=== PATIENT | female | born 1995 | race Caucasian/White ===

== ENCOUNTER 2020-08-30 20:57 | Emergency (ER) | payer MEDICAID, OTHER ==
[~2020-08-30] VITALS: Ht 170.1 cm; Wt 81.6 kg
[2020-08-30] MEDS ORDERED: morphine INJ 10 MG/ML 1ML (SYR OR VIAL) IVP STA ×2 (21:20→22:16)
[2020-08-30 21:24] LABS: BASOPHILS % (AUTO) 0 % (0-10); EOSINOPHILS # (AUTO) 0.2 10^3/uL (0.0-0.3); EOSINOPHILS % (AUTO) 1 % (0-10); HEMATOCRIT 43 % (35-52); LYMPHOCYTES # (AUTO) 3.1 X 10^3 (1.0-4.0); LYMPHOCYTES % (AUTO) 21 % (12-44); MEAN CORPUSCULAR HEMOGLOBIN 30 PG (25-34); MEAN CORPUSCULAR HGB CONC 33 G/DL (32-36); MEAN CORPUSCULAR VOLUME 93 FL (80-99); MEAN PLATELET VOLUME 10.9 FL (7.4-10.4); MONOCYTES # (AUTO) 0.4 X 10^3 (0.0-1.0); MONOCYTES % (AUTO) 3 % (0-12); NEUTROPHILS # (AUTO) 11.2 X 10^3 (1.8-7.8); NEUTROPHILS % (AUTO) 75 % (42-75); PLATELET COUNT 241 10^3/uL (130-400); WHITE BLOOD COUNT 15.1 10^3/uL (4.3-11.0)
[2020-08-30 21:25] LABS: COLOR,URINE YELLOW
[2020-08-30 21:26] LABS: BILIRUBIN,URINE NEH (NEGATIVE); CLARITY,URINE SLIGHTLY CLOUDY; GLUCOSE, URINE (UA) NEGATIVE (NEGATIVE); KETONES,URINE NEGATIVE (NEGATIVE); LEUKOCYTE ESTERASE ,URINE TRACE (NEGATIVE); NITRITE,URINE NEGATIVE (NEGATIVE); PROTEIN,URINE NEGATIVE (NEGATIVE)
[2020-08-30] MEDS ORDERED: ONDANSETRON 4 MG/2 ML (SDV) Z0FRAN IVP ONE (21:30)
[2020-08-30 21:39] LABS: ALANINE AMINOTRANSFERASE 21 U/L (0-55); ALBUMIN 4.2 GM/DL (3.2-4.5); ALKALINE PHOSPHATASE 101 U/L (40-136); BILIRUBIN,TOTAL < 0.2 MG/DL (0.1-1.0); BUN/CREATININE RATIO 11; CALCIUM 8.7 MG/DL (8.5-10.1); CARBON DIOXIDE 21 MMOL/L (21-32); CHLORIDE 107 MMOL/L (98-107); GFR ESTIMATED > 60; GLUCOSE 138 MG/DL (70-105); SODIUM 139 MMOL/L (135-145); TOTAL PROTEIN 7.1 GM/DL (6.4-8.2)
[2020-08-30] MEDS ORDERED: IOHEXOL 350 MG/ML 100 ML (OMNIPAQUE 350) VIAL IV ONE (21:45)
[2020-08-30] MEDS ORDERED: HOLD METFORMIN - RECEIVED CONTRAST 20 ML VIAL IV SCH (21:45)
[2020-08-30] MEDS ORDERED: CATHETER FLUSH 10 ML SYR IV PRN (21:45)
[2020-08-30] MEDS ORDERED: NS 100 ML (IVPB) BAG IV ONE (21:45)
[2020-08-30 21:46] LABS: EOSINOPHILS % (MANUAL) 1 %; LYMPHOCYTES % (MANUAL) 26 %; MONOCYTES % (MANUAL) 4 %; NEUTROPHILS % (MANUAL) 69 %; TOXIC GRANULATION/VACUOLAZATIO 4+
[2020-08-30] MEDS ORDERED: PIPERACILLIN SODIUM/TAZOBACTAM 4.5 GM in NS (IVPB) 100 ML IV ONE (22:45)
[2020-08-30] MEDS ORDERED: fentaNYL INJECTION 100 MCG/2 ML AMP IVP PRN (23:30)
[2020-08-30] MEDS ORDERED: LORazepam INJ 2 MG/ML (ATIVAN) VIAL IVP ONE (23:30)
--- NOTE | 2020-08-31 00:13 | ED General ---
General Chief Complaint: Abdominal/GI Problems Stated Complaint: RIGHT SIDE PAIN Nursing Triage Note: Patient states that she began having lower right quadrant abdominal pain last night. Patient states that it has progressively gotten worse. Patient rates her pain at a 10. Nursing Sepsis Screen: No Definite Risk Source of Information: Patient History of Present Illness Date Seen by Provider: Aug 31, 2020 Time Seen by Provider: 22:30 Initial Comments Patient is a 25-year-old female who presents with right lower quadrant pain starting approximately 24 hours prior to ED arrival. Pain is dull headache and has gradually increased in intensity over the past several hours. Pain is worse with palpation and movement. Patient reports nausea loss of appetite. No fever chills or sweats. No flank pain. No urinary frequency urgency or burning. No vaginal discharge or bleeding. No constipation or diarrhea. No prior abdominal surgery. Patient does not have menstrual periods due to Depo-Provera injection. Timing/Duration: 24 Hours Modifying Factors: improves with Movement, improves with Rest Associated Systoms: Loss of Appetite, Nausea/Vomiting Allergies and Home Medications Allergies Coded Allergies: No Known Drug Allergies (Unverified , 08/30/20) Patient Home Medication List Home Medication List Reviewed: Yes Review of Systems Review of Systems Constitutional: see HPI EENTM: see HPI Respiratory: see HPI Cardiovascular: see HPI Gastrointestinal: RLQ, abdominal pain, loss of appetite, nausea Genitourinary: no symptoms reported, see HPI Musculoskeletal: no symptoms reported Skin: no symptoms reported Psychiatric/Neurological: No Symptoms Reported Hematologic/Lymphatic: No Symptoms Reported Immunological/Allergic: no symptoms reported Past Irgrtud-Xlspsu-Szplde Hx Patient Social History Alcohol Use: Denies Use Recreational Drug Use: No Smoking Status: Current Everyday Smoker Recent Foreign Travel: No Contact w/Someone Who Travel: No Recent Infectious Disease Expo: No Physical Abuse: No Sexual Abuse: No Mistreated: No Fear: No Past Medical History Surgeries: No Respiratory: No Cardiac: No Neurological: No Genitourinary: No Gastrointestinal: No Musculoskeletal: No Endocrine: No HEENT: No Cancer: No Psychosocial: No Integumentary: No Blood Disorders: No Physical Exam Vital Signs Vital Signs - First Documented 08/30/20 21:02 Temp 36.6 Pulse 125 Resp 20 B/P (MAP) 133/81 (98) Pulse Ox 97 O2 Delivery Room Air Capillary Refill : Less Than 3 Seconds Height, Weight, BMI Height: '" Weight: lbs. oz. kg; 28.00 BMI Method: General Appearance: Moderate Distress Eyes: Bilateral Eye Normal Inspection, Bilateral Eye PERRL, Bilateral Eye EOMI HEENT: PERRL/EOMI, Normal ENT Inspection, Pharynx Normal Neck: Full Range of Motion, Non Tender Respiratory: Lungs Clear Cardiovascular: Regular Rate, Rhythm, No Edema Gastrointestinal: Tenderness (RLQ tenderness w/voluntary guarding) Back: Normal Inspection, No CVA Tenderness Extremity: Normal Capillary Refill Focused Exam Sepsis Stage: Ruled Out Respiratory: Lungs Clear Progress/Results/Core Measures Suspected Sepsis Recent Fever Within 48 Hours: No Infection Criteria Present: None New/Unexplained Altered Menta: No Sepsis Screen: No Definite Risk SIRS Temperature: Pulse: 125 Respiratory Rate: 20 Laboratory Tests 08/30/20 21:10: White Blood Count 15.1H Blood Pressure 133 /81 Mean: 98 Laboratory Tests 08/30/20 21:10: Creatinine 0.90, Platelet Count 241, Total Bilirubin < 0.2 Results/Orders Lab Results Laboratory Tests Test 08/30/20 21:06 08/30/20 21:10 Range/Units Urine Color YELLOW Urine Clarity SLIGHTLY CLOUDY Urine pH 6.0 5-9 Urine Specific [place] >=1.030 1.016-1.022 Urine Protein NEGATIVE NEGATIVE Urine Glucose (UA) NEGATIVE NEGATIVE Urine Ketones NEGATIVE NEGATIVE Urine Nitrite NEGATIVE NEGATIVE Urine Bilirubin NEH NEGATIVE Urine Urobilinogen 0.2 < = 1.0 MG/DL Urine Leukocyte Esterase TRACE H NEGATIVE Urine RBC (Auto) 2+ H NEGATIVE White Blood Count 15.1 H 4.3-11.0 10^3/uL Red Blood Count 4.61 4.35-5.85 10^6/uL Hemoglobin 14.0 11.5-16.0 G/DL Hematocrit 43 35-52 % Mean Corpuscular Volume 93 80-99 FL Mean Corpuscular Hemoglobin 30 25-34 PG Mean Corpuscular Hemoglobin Concent 33 32-36 G/DL Red Cell Distribution Width 13.4 10.0-14.5 % Platelet Count 241 130-400 10^3/uL Mean Platelet Volume 10.9 H 7.4-10.4 FL Immature Granulocyte % (Auto) 0 % Neutrophils (%) (Auto) 75 42-75 % Lymphocytes (%) (Auto) 21 12-44 % Monocytes (%) (Auto) 3 0-12 % Eosinophils (%) (Auto) 1 0-10 % Basophils (%) (Auto) 0 0-10 % Neutrophils # (Auto) 11.2 H 1.8-7.8 X 10^3 Lymphocytes # (Auto) 3.1 1.0-4.0 X 10^3 Monocytes # (Auto) 0.4 0.0-1.0 X 10^3 Eosinophils # (Auto) 0.2 0.0-0.3 10^3/uL Basophils # (Auto) 0.0 0.0-0.1 10^3/uL Immature Granulocyte # (Auto) 0.1 0.0-0.1 10^3/uL Neutrophils % (Manual) 69 % Lymphocytes % (Manual) 26 % Monocytes % (Manual) 4 % Eosinophils % (Manual) 1 % Toxic Granulation 4+ Sodium Level 139 135-145 MMOL/L Potassium Level 4.0 3.6-5.0 MMOL/L Chloride Level 107 98-107 MMOL/L Carbon Dioxide Level 21 21-32 MMOL/L Anion Gap 11 5-14 MMOL/L Blood Urea Nitrogen 10 7-18 MG/DL Creatinine 0.90 0.60-1.30 MG/DL Estimat Glomerular Filtration Rate > 60 BUN/Creatinine Ratio 11 Glucose Level 138 H 70-105 MG/DL Calcium Level 8.7 8.5-10.1 MG/DL Corrected Calcium 8.5 8.5-10.1 MG/DL Total Bilirubin < 0.2 0.1-1.0 MG/DL Aspartate Amino Transf (AST/SGOT) 16 5-34 U/L Alanine Aminotransferase (ALT/SGPT) 21 0-55 U/L Alkaline Phosphatase 101 40-136 U/L Total Protein 7.1 6.4-8.2 GM/DL Albumin 4.2 3.2-4.5 GM/DL Human Chorionic Gonadotropin, Quant < 5 <5 MIU/ML My Orders Orders - YANCI ORDAZ DO Cbc With Automated Diff (08/30/20 21:20) Comprehensive Metabolic Panel (08/30/20 21:20) Hcg,Quantitative (08/30/20 21:20) Urinalysis Dipstick Only (08/30/20 21:20) Morphine Injection (Morphine Injection (08/30/20 21:20) Ondansetron Injection (Zofran Injectio (08/30/20 21:30) Manual Differential (08/30/20 21:10) Ed Iv/Invasive Line Start (08/30/20 21:31) Ct Abd/Pelv W (Appendicitis) (08/30/20 21:39) Iohexol Injection (Omnipaque 350 Mg/Ml 1 (08/30/20 21:45) Received Contrast (Hold Metformin- Contr (08/30/20 21:45) Sodium Chloride Flush (Catheter Flush Sy (08/30/20 21:45) Ns (Ivpb) (Sodium Chloride 0.9% Ivpb Bag (08/30/20 21:45) Morphine Injection (Morphine Injection (08/30/20 22:16) Piperacillin Sodium/Tazobactam (Zosyn Vi (08/30/20 22:45) Fentanyl Injection (Sublimaze Injection (08/30/20 23:30) Lorazepam Injection (Ativan Injection) (08/30/20 23:30) Medications Given in ED Current Medications Medications Dose Ordered Sig/Bry Route Start Time Stop Time Status Last Admin Dose Admin Fentanyl Citrate 50 mcg Q1H PRN IVP 08/30/20 23:30 08/30/20 23:35 50 MCG Iohexol 100 ml ONCE ONCE IV 08/30/20 21:45 08/30/20 21:46 DC 08/30/20 21:55 100 ML Lorazepam 2 mg ONCE ONCE IVP 08/30/20 23:30 08/30/20 23:31 DC 08/30/20 23:37 2 MG Ondansetron HCl 4 mg ONCE ONCE IVP 08/30/20 21:30 08/30/20 21:31 DC 08/30/20 21:25 4 MG Piperacillin Sod/ Tazobactam Sod 4.5 gm/Sodium Chloride 100 ml @ 200 mls/hr ONCE ONCE IV 08/30/20 22:45 08/30/20 23:14 DC 08/30/20 23:39 200 MLS/HR Sodium Chloride 10 ml NEEDED PRN IV 08/30/20 21:45 08/30/20 21:55 10 ML Sodium Chloride 100 ml ONCE ONCE IV 08/30/20 21:45 08/30/20 21:46 DC 08/30/20 21:55 100 ML Vital Signs/I&O 08/30/20 21:02 Temp 36.6 Pulse 125 Resp 20 B/P (MAP) 133/81 (98) Pulse Ox 97 O2 Delivery Room Air Capillary Refill : Less Than 3 Seconds Blood Pressure Mean: 98 Departure Communication (Admissions) CT abdomen and pelvis: Findings of acute appendicitis per radiology report. Lab and imaging studies reviewed. IV antibiotics and repeat doses of pain medication given. No beds available -[facility]. Dr. [facility] accepts patient. Impression Primary Impression: Acute appendicitis Disposition: XF [facility] HOSP Condition: Stable Departure-Patient Inst. Decision time for Depature: 23:30 Referrals: NO,LOCAL PHYSICIAN (PCP) Primary Care Physician Patient Instructions: Appendicitis in Adults Add. Discharge Instructions: All discharge instructions reviewed with patient and/or family. Voiced understanding. YANCI ORDAZ DO Aug 31, 2020 00:13
[2020-08-31] MEDS ORDERED: TRM50T PO (00:44)
--- NOTE | 2020-08-31 00:59 | NUR ---
railroad car repair supervisor from [facility] called and stated that they still had a bed but they were unable to take the patient at this time due to changes in staffing. She advised that she would call back in 1 to 1 1/2 hours to update. Patient is advised.
[2020-08-31 03:02] VITALS: BP 121/71
--- NOTE | 2020-08-31 06:22 | Diagnostic Imaging Report ---
PROCEDURE: CT abdomen and pelvis with contrast, rule out appendicitis. TECHNIQUE: Multiple contiguous axial images were obtained through the abdomen and pelvis after the administration of intravenous contrast. All CT scans use one or more of the following dose optimizing techniques: automated exposure control, MA and/or KvP adjustment based on patient size and exam type or iterative reconstruction. INDICATION: Right lower quadrant abdominal pain. Minimal patchy densities are seen in the lung bases possibly related to mild edema or pneumonitis. Note is made of an approximately 1 cm circumscribed nodule within the lateral right breast. Below the diaphragm of focal hepatic, gallbladder, pancreatic, adrenal gland or splenic abnormality is identified. The kidneys are unremarkable in appearance. The appendix is enlarged measuring up to 0.8 cm in diameter with mild surrounding edema and inflammation. Mildly prominent right lower quadrant mesenteric lymph nodes are noted. There is no evidence of pneumoperitoneum or organized fluid collection to indicate abscess. Bladder is incompletely opacified but otherwise unremarkable in appearance. IMPRESSION: Findings are compatible with acute appendicitis without CT evidence of perforation or abscess. Slight increased density in lung bases may be due to edema or pneumonitis. There is 1 cm nodule in the lateral right breast. This could be due to cyst or fibroadenoma. Correlation to change and physical findings at this site would be useful and if indicated ultrasound could be performed. Dictated by: Dictated on workstation # [id number]
== END 2020-08-31 03:12 | disposition short-term general hospital (02) ==
LOC: ER FS 21:04
DX: K35.80 Unspecified acute appendicitis (principal); F17.200 Nicotine dependence, unspecified, uncomplicated
CPT/HCPCS: 36415; 74177; 80053; 81002; 84702; 85007; 85027